=== PATIENT | female | born 1985 | race Caucasian/White ===

== ENCOUNTER 2017-05-21 23:44 | Emergency (ER) | payer OTHER ==
[2010-02-07 11:23] VITALS: BMI 27.1
[2017-05-22 00:40] LABS: HEMATOCRIT 37.8 % (36.0-48.0); MCH 28.8 pg (26.0-34.0); MCHC 34.4 g/dL (31.0-37.0); MCV 83.8 fL (80.0-100.0); MEAN PLATELET VOLUME 8.8 fL (7.4-10.4); NEUTROPHILS 66.9 % (40-80); PLATELET COUNT 237 10x3/uL (130-400); RBC 4.51 10x6/uL (4.00-5.40); RDW 13.2 % (11.5-14.5); WBC 7.2 10x3/uL (4.8-10.8)
[2017-05-22 00:53] LABS: ALBUMIN 3.6 g/dL (3.4-5.0); ALKALINE PHOSPHATASE 86 U/L (46-116); ALT (SGPT) 27 U/L (10-68); CALC OSMOLALITY 277 mosm/kg (275-300); CALCIUM 8.7 mg/dL (8.5-10.1); CARBON DIOXIDE 27.4 mmol/L (21.0-32.0); CHLORIDE - SERUM 102 mmol/L (98-107); CREATININE - SERUM 0.9 mg/dL (0.6-1.3); GLUCOSE 110 mg/dL (74-106); MAGNESIUM - SERUM 1.8 mg/dL (1.8-2.4); POTASSIUM - SERUM 3.6 mmol/L (3.5-5.1); PROTEIN - SERUM 7.7 g/dL (6.4-8.2); SODIUM 139 mmol/L (136-145); UREA NITROGEN 11 mg/dL (7-18); eGFR NON AFRICAN AMERICAN 78 mL/min (90-120)
== END 2017-05-22 02:20 | disposition home or self-care (01) ==
LOC: D.ER 23:44
PROVIDERS: Family Medicine
DX: R42 Dizziness and giddiness (principal)

== ENCOUNTER 2019-06-09 03:11 | Emergency (ER) | payer BC ==
[~2019-06-09] VITALS: Ht 167.6 cm; Wt 84.5 kg
[2019-06-09 03:19] VITALS: Ht 167.6 cm; Wt 84.5 kg
[2019-06-09 04:03] LABS: APPEARANCE SL CLDY (CLEAR); BILIRUBIN NEGATIVE (NEGATIVE); COLOR YELLOW (YELLOW); GLUCOSE NEGATIVE (NEGATIVE); KETONE NEGATIVE (NEGATIVE); NITRITE POSITIVE (NEGATIVE); PROTEIN NEGATIVE (NEGATIVE); SPECIFIC GRAVITY 1.015 (1.005-1.020); UROBILINOGEN NORMAL (NORMAL)
[2019-06-09 04:05] LABS: BASOPHILS 0.1 % (0-2); EOSINOPHILS 3.9 % (0-7); HEMATOCRIT 38.3 % (36.0-48.0); HEMOGLOBIN 13.5 g/dL (12-16); IMMATURE GRANULOCYTES 0.3 % (0-5); LYMPHOCYTES 35.4 % (15-50); MCH 29.3 pg (26.0-34.0); MCHC 35.2 g/dL (31.0-37.0); MCV 83.3 fL (80.0-100.0); MEAN PLATELET VOLUME 9.9 fL (7.4-10.4); MONOCYTES 6.8 % (2-11); NEUTROPHILS 53.5 % (40-80); PLATELET COUNT 230 10x3/uL (130-400); WBC 7.6 10x3/uL (4.8-10.8)
[2019-06-09 04:11] LABS: BACTERIA MANY /hpf (NONE SEEN); EPITHELIAL CELLS 0-5 /hpf (0-5); RED CELLS - URINE 0-5 /hpf (0-5)
[2019-06-09 04:21] LABS: ALBUMIN 3.8 g/dL (3.4-5.0); ALKALINE PHOSPHATASE 67 U/L (46-116); ALT (SGPT) 21 U/L (10-68); BILIRUBIN - TOTAL 0.31 mg/dL (0.2-1.3); CALC OSMOLALITY 274 mosm/kg (275-300); CALCIUM 8.9 mg/dL (8.5-10.1); CARBON DIOXIDE 26.5 mmol/L (21.0-32.0); CHLORIDE - SERUM 104 mmol/L (98-107); CREATININE - SERUM 0.8 mg/dL (0.6-1.3); GLUCOSE 102 mg/dL (74-106); POTASSIUM - SERUM 4.1 mmol/L (3.5-5.1); PROTEIN - SERUM 7.7 g/dL (6.4-8.2); SODIUM 138 mmol/L (136-145); UREA NITROGEN 11 mg/dL (7-18); eGFR NON AFRICAN AMERICAN 88 mL/min (90-120)
[2019-06-09 04:23] LABS: HCG URINE NEGATIVE (NEGATIVE)
[2019-06-09 04:25] LABS: AMYLASE - SERUM 39 U/L (25-115); LIPASE 187 U/L (73-393); TROPONIN-I < 0.017 ng/mL (0.000-0.060)
[2019-06-09] MEDS ORDERED: MACROBID100 MG PO (05:28)
[2019-06-09] MEDS ORDERED: NAPROSYN500 MG PO (05:28)
[2019-06-09 06:01] VITALS: BP 128/65
[2019-06-11 21:06] LABS: CHLAMYDIA TRACHOMATIS, NAA Negative (Negative)
== END 2019-06-09 06:01 | disposition home or self-care (01) ==
LOC: D.ER 03:11
PROVIDERS: Family Medicine
DX: N39.0 Urinary tract infection, site not specified (principal)

== ENCOUNTER 2020-07-11 09:15 | Emergency (ER) | payer BC ==
[~2020-07-11] VITALS: Ht 167.6 cm; Wt 93.6 kg
[~2020-07-11 09:15] MED LIST: MACROBID100 MG PO; NAPROSYN500 MG PO
[2020-07-11 09:30] VITALS: BP 125/63; Ht 167.6 cm; Wt 93.6 kg
[2020-07-11] MEDS ORDERED: PROAIR HFA8.5 G1 PO (09:32)
[2020-07-11 10:09] LABS: APTT 30.5 SECONDS (22.8-39.4); INR 0.91 (0.85-1.17); PROTIME 12.2 SECONDS (11.6-15.0)
[2020-07-11 10:10] LABS: CALC OSMOLALITY 271 mosm/kg (275-300); CALCIUM 8.7 mg/dL (8.5-10.1); CARBON DIOXIDE 25.1 mmol/L (21.0-32.0); CHLORIDE - SERUM 105 mmol/L (98-107); CREATININE - SERUM 0.7 mg/dL (0.6-1.3); GLUCOSE 101 mg/dL (74-106); POTASSIUM - SERUM 3.8 mmol/L (3.5-5.1); SODIUM 136 mmol/L (136-145); UREA NITROGEN 13 mg/dL (7-18); eGFR NON AFRICAN AMERICAN > 90 mL/min (90-120)
[2020-07-11 10:12] LABS: BASOPHILS 0.2 % (0-2); EOSINOPHILS 7.1 % (0-7); HEMATOCRIT 39.8 % (36.0-48.0); HEMOGLOBIN 13.4 g/dL (12-16); IMMATURE GRANULOCYTES 0.2 % (0-5); LYMPHOCYTES 28.8 % (15-50); MCH 28.6 pg (26.0-34.0); MCHC 33.7 g/dL (31.0-37.0); MEAN PLATELET VOLUME 9.6 fL (7.4-10.4); MONOCYTES 7.6 % (2-11); NEUTROPHILS 56.1 % (40-80); PLATELET COUNT 206 10x3/uL (130-400); RBC 4.68 10x6/uL (4.00-5.40); RDW 13.2 % (11.5-14.5); WBC 5.8 10x3/uL (4.8-10.8)
[2020-07-11 10:19] LABS: ALBUMIN 3.5 g/dL (3.4-5.0); ALKALINE PHOSPHATASE 66 U/L (30-120); ALT (SGPT) 20 U/L (10-68); BILIRUBIN - TOTAL 0.32 mg/dL (0.2-1.3); LIPASE 114 U/L (73-393); PROTEIN - SERUM 7.5 g/dL (6.4-8.2)
[2020-07-11 10:21] LABS: TROPONIN-I < 0.017 ng/mL (0.000-0.060)
[2020-07-11 10:43] LABS: BILIRUBIN NEGATIVE (NEGATIVE); KETONE NEGATIVE (NEGATIVE); NITRITE POSITIVE (NEGATIVE); UROBILINOGEN NORMAL mg/dL (< 2)
[2020-07-11 10:44] LABS: WHITE CELLS - URINE 0-5 HPF (0-4)
[2020-07-11 10:45] LABS: BACTERIA MANY HPF (NONE SEEN); EPITHELIAL CELLS RARE /hpf (0-5)
[2020-07-11 11:23] LABS: HCG URINE NEGATIVE (NEGATIVE)
[2020-07-11] MEDS ORDERED: PEPCID40 MG PO (12:33)
[2020-07-11] MEDS ORDERED: KEFLEX500 MG PO (12:33)
== END 2020-07-11 14:13 | disposition home or self-care (01) ==
LOC: D.ER 09:15
PROVIDERS: Emergency Medicine
DX: R07.9 Chest pain, unspecified (principal); R79.89 Other specified abnormal findings of blood chemistry; J45.909 Unspecified asthma, uncomplicated; K21.9 Gastro-esophageal reflux disease without esophagitis